=== PATIENT | female | born 1980 | race Caucasian/White ===

== ENCOUNTER 2016-12-09 22:50 | Emergency (ER) | payer MEDICARE, OTHER ==
[~2016-12-09] VITALS: Ht 165.1 cm; Wt 52.2 kg
[2016-12-09 23:00] VITALS: BP 125/85
[2016-12-09 23:45] VITALS: BP 125/85
--- NOTE | 2016-12-10 03:14 | Emergency Room Report ---
History of Present Illness General Chief Complaint: Medical Clearance Source: Patient, EMS Present Illness HPI 36-year-old female referred to ED for evaluation. Patient comes from [facility]. Patient was sent for clearance. Patient was initially tachycardic at her facility today so nurse call 911. Patient denies any chest pain or shortness of breath. Patient states she feels very anxious and history of diabetes. Nursing facility states patient has a history of drug abuse and tested positive for cocaine today. Patient currently denies any drug use to me. No other aggravating or relieving factors. Denies any other associated symptoms Allergies: Coded Allergies: No Known Allergies (Unverified , 12/09/16) Patient History Past Medical History: other - necrotizing fasciitis Past Surgical History: other - L BKA Pertinent Family History: none Social History: Reports: drug use, Denies: alcohol use, smoking Last Menstrual Period: 3 WEEKS AGO Now: No Immunizations: UTD Reviewed Nursing Documentation: PMH: Agreed, PSxH: Agreed Nursing Documentation-PMH History Of Psychiatric Problem: Yes - ANXIETY, PTSD Review of Systems All Other Systems: negative except mentioned in HPI Physical Exam Vital Signs Date Time Temp Pulse Resp B/P Pulse Ox O2 Delivery O2 Flow Rate FiO2 12/09/16 22:50 98.1 101 18 125/85 98 Room Air Sp02 EP Interpretation: reviewed, normal General Appearance: no apparent distress, alert, GCS 15, non-toxic Head: normocephalic, atraumatic Eyes: bilateral eye PERRL, bilateral eye normal inspection ENT: hearing grossly normal, normal pharynx, no angioedema, normal voice Neck: full range of motion, supple/symm/no masses Respiratory: chest non-tender, lungs clear, normal breath sounds, speaking full sentences Cardiovascular #1: regular rate, rhythm, no edema Cardiovascular #2: 2+ carotid (R), 2+ carotid (L), 2+ radial (R), 2+ radial (L) , 2+ dorsalis pedis (R), 2+ dorsalis pedis (L) Gastrointestinal: normal bowel sounds, non tender, soft, non-distended, no guarding, no rebound Rectal: deferred Genitourinary: normal inspection, no CVA tenderness Musculoskeletal: back normal, gait/station normal, normal range of motion, other - s/p L BKA Neurologic: alert, oriented x3, responsive, motor strength/tone normal, sensory intact, speech normal Psychiatric: judgement/insight normal, memory normal, no suicidal/homicidal ideation, anxious Reflexes: 3+ bicep (R), 3+ bicep (L), 3+ tricep (R), 3+ tricep (L), 3+ knee (R) , 3+ knee (L) Skin: normal color, no rash, warm/dry, well hydrated Lymphatic: no adenopathy Medical Decision Making Diagnostic Impression: Primary Impression: Tachycardia Additional Impression: Cocaine abuse ER Course 36-year-old female referred to ED for evaluation of tachycardia. History of anxiety and cocaine abuse Differential-anxiety, arrhythmia, ACS [place], cocaine abuse Patient placed on stretcher. After initial history and physical I ordered labs , EKG, chest x-ray. Patient is refusing lab draw. Patient will agreed to EKG and chest x-ray EKG-sinus rhythm, no ischemic changes Chest x-ray unremarkable Patient is stable vitals, in no distress here, denies any chest pain. Discussed case with nurse at SNF. She agrees that patient can be medically cleared and discharged back to facility. Diagnoses-tachycardiac, cocaine abuse Stable and discharged to SNF. Followup with PMD. Return to ED if symptoms recur or worsen EKG Diagnostic Results Rate: normal Rhythm: NSR ST Segments: no acute changes ASA given to the pt in ED: No Rhythm Strip Diag. Results EP Interpretation: yes Rhythm: NSR, no PVC's, no ectopy Chest X-Ray Diagnostic Results EP Interpretation: Yes Findings: no consolidation, no effusion, no pneumothorax, no acute cardiopulmonary disease Number of Views: 1 Last Vital Signs Date Time Temp Pulse Resp B/P Pulse Ox O2 Delivery O2 Flow Rate FiO2 12/09/16 23:45 98.1 89 18 125/85 98 Room Air Status: improved Disposition: XFER SNF Condition: Stable Patient Instructions: Palpitations, [id number] KENNETH KAPLAN M.D. Dec 10, 2016 03:14
--- NOTE | 2016-12-10 11:51 | Diagnostic Imaging Report ---
Indication: Chest pain Technique: One view of the chest Comparison: none Findings: Lungs and pleural spaces are clear. Heart size is normal. Impression: No acute process This agrees with the preliminary interpretation provided by the emergency room physician
--- NOTE | 2016-12-12 11:52 | Cardiology Report ---
APPROVED REPORT EKG Measurement Heart [id number] Normal sinus rhythm Normal ECG
== END 2016-12-09 23:56 ==
LOC: EDBD 22:50 → EMR 23:08
DX: R00.0 Tachycardia, unspecified (principal); F14.10 Cocaine abuse, uncomplicated; E11.9 Type 2 diabetes mellitus without complications; Z86.59 Personal history of other mental and behavioral disorders
CPT/HCPCS: 71010; 93005; 99283